=== PATIENT | female | born 1935 | race Asian ===

== ENCOUNTER 2023-04-13 09:02 | Inpatient (IN) | payer MEDICAID, MEDICARE ==
[2023-04-13] VITALS (9 sets, daily range): BP systolic 103–134; BP diastolic 56–67; PULSE 77–117; RESP 16–19; TEMP 97–97.9; O2SAT 94–99
[~2023-04-13] VITALS: Ht 160 cm; Wt 48.5 kg
[2023-04-13] MEDS ORDERED: NACL 0.9% 1,500 ML IV SCH (09:40)
[2023-04-13 10:29] LABS: BLOOD GAS PCO2 24.8 mmHg (35-45); BLOOD GAS PH 7.522 (7.35-7.45)
[2023-04-13 10:30] LABS: BLOOD GAS BASE EXCESS -1.3 mmol/L (-2.0-2.0); BLOOD GAS HCO3 19.9 mmol/L (22-26); BLOOD GAS PO2 45.4 mmHg (75-100)
[2023-04-13 10:31] LABS: FRACTIONATED INSPIRED OXYGEN 0.21 % (0.21-100.00)
[2023-04-13 10:58] LABS: BASOPHILS % (AUTO) 0.1 % (0.0-2.0); HEMATOCRIT 38.6 % (36-48); HEMOGLOBIN 13.8 g/dL (12.0-16.0); LYMPHOCYTES # (AUTO) 0.4 K/uL (2.5-16.5); LYMPHOCYTES % (AUTO) 3.2 % (20.5-51.1); MEAN CORPUSCULAR HEMOGLOBIN 29 pg (27-31); MEAN CORPUSCULAR HGB CONC 36 g/dL (33-37); MEAN CORPUSCULAR VOLUME 81.9 fL (80-94); MONOCYTES # (AUTO) 0.2 K/uL (0.8-1.0); MONOCYTES % (AUTO) 1.7 % (1.7-9.3); NEUTROPHILS # (AUTO) 11.8 K/uL (1.8-7.7); PLATELET COUNT (AUTO) 262 K/uL (140-450); RED BLOOD CELL COUNT(AUTO) 4.72 MIL/uL (4.20-5.40); WHITE BLOOD COUNT (AUTO) 12.4 K/uL (4.8-10.8)
[2023-04-13 11:17] LABS: PROTHROMBIN TIME 10.5 secs (10.8-13.4)
[2023-04-13] MEDS ORDERED: ASPI-1205 PO (11:30)
[2023-04-13] MEDS ORDERED: CALC500T60 PO (11:30)
[2023-04-13] MEDS ORDERED: SYN.075 PO (11:30)
[2023-04-13] MEDS ORDERED: ASCO500T95 PO (11:30)
[2023-04-13] MEDS ORDERED: PRAV20TA5 PO (11:30)
[2023-04-13] MEDS ORDERED: MULT-2253 PO (11:30)
[2023-04-13] MEDS ORDERED: GABA100C PO (11:30)
[2023-04-13] MEDS ORDERED: AMLO5TAB PO (11:30)
[2023-04-13 11:33] LABS: RSV Negative (NEGATIVE)
[2023-04-13 11:39] LABS: FLU A ANTIGEN negative (NEGATIVE); FLU B ANTIGEN negative (NEGATIVE)
[2023-04-13] MEDS ORDERED: cefTRIAXone 1,000 MG VIAL ONE (11:55)
[2023-04-13 11:58] LABS: ALBUMIN 2.9 g/dL (3.4-5.0); ANION GAP 14.7 (8-16); CALCIUM 7.2 mg/dL (8.5-10.1); CREATININE 0.6 mg/dL (0.6-1.3)
[2023-04-13 12:00] LABS: CREATINE KINASE, TOTAL 1925 U/L (26-192)
[2023-04-13 12:04] LABS: POTASSIUM 2.7 mmol/L (3.5-5.1)
[2023-04-13] MEDS ORDERED: KCL 20 MEQ IN 100 mL PREMIX 200 ML IV ONE (12:10)
[2023-04-13 12:25] LABS: LACTIC ACID 1.3 mmol/L (0.4-2.0)
[2023-04-13] MEDS ORDERED: KCL 20 MEQ IN 100 mL PREMIX 200 ML IV PRN (13:10)
[2023-04-13] MEDS ORDERED: MORPHINE SULFATE 2 MG/ML SYR IVP PRN (13:10)
[2023-04-13] MEDS ORDERED: ONDANSETRON 4 MG/2 ML VIAL IVP PRN (13:10)
[2023-04-13] MEDS ORDERED: HYDROcodone/APAP 5/325 MG 1 TAB TAB PO PRN (13:10)
[2023-04-13] MEDS ORDERED: POTASSIUM CHLORIDE 10 MEQ TABER PO PRN (13:10)
[2023-04-13] MEDS ORDERED: ACETAMINOPHEN 325 MG TAB PO PRN (13:10)
[2023-04-13 13:42] LABS: TOTAL PROTEIN, SERUM 7.4 g/dL (6.4-8.2)
[2023-04-13 15:19] LABS: ANION GAP 13.5 (8-16); CALCIUM 6.4 mg/dL (8.5-10.1); CARBON DIOXIDE 20.7 mmol/L (21-32); CHLORIDE 77 mmol/L (98-107); CREATININE 0.4 mg/dL (0.6-1.3); GLUCOSE 104 mg/dL (74-106); POTASSIUM 3.2 mmol/L (3.5-5.1); UREA NITROGEN, BLOOD 8 mg/dL (7-18)
[2023-04-13 15:35] LABS: SODIUM SERUM 108 mmol/L (136-145)
[2023-04-13] MEDS: AZITHROMYCIN 500 MG in DEXTROSE 5% 250 ML IV SCH (17:00)
[2023-04-13] MEDS ORDERED: AZITHROMYCIN 500 MG INJ VIAL IV ONE ×2 (17:47→17:49)
[2023-04-13] MEDS ORDERED: traZODone 50 MG TAB PO PRN (23:20)
[2023-04-13] MEDS ORDERED: guaiFENesin 20 MG/ML UDC PO PRN (23:20)
[2023-04-14] VITALS (11 sets, daily range): BP systolic 110–134; BP diastolic 58–71; PULSE 77–110; RESP 16–24; TEMP 97–98.5; O2SAT 96–99
[2023-04-14 07:12] LABS: ANION GAP 13.5 (8-16); CARBON DIOXIDE 21.6 mmol/L (21-32); CHLORIDE 76 mmol/L (98-107); CREATININE 0.6 mg/dL (0.6-1.3); GLUCOSE 179 mg/dL (74-106); POTASSIUM 3.1 mmol/L (3.5-5.1); UREA NITROGEN, BLOOD 9 mg/dL (7-18)
[2023-04-14 07:29] LABS: CALCIUM 6.3 mg/dL (8.5-10.1)
[2023-04-14 07:38] LABS: BASOPHILS % (AUTO) 0.1 % (0.0-2.0); HEMATOCRIT 35.3 % (36-48); HEMOGLOBIN 12.3 g/dL (12.0-16.0); LYMPHOCYTES # (AUTO) 0.3 K/uL (2.5-16.5); LYMPHOCYTES % (AUTO) 2.6 % (20.5-51.1); MEAN CORPUSCULAR HEMOGLOBIN 29 pg (27-31); MEAN CORPUSCULAR HGB CONC 35 g/dL (33-37); MEAN CORPUSCULAR VOLUME 82.7 fL (80-94); MONOCYTES # (AUTO) 0.4 K/uL (0.8-1.0); NEUTROPHILS # (AUTO) 11.8 K/uL (1.8-7.7); NEUTROPHILS % (AUTO) 94.3 % (42.2-75.2); PLATELET COUNT (AUTO) 257 K/uL (140-450); RED BLOOD CELL COUNT(AUTO) 4.27 MIL/uL (4.20-5.40); RED CELL DISTRIBUTION WIDTH 13.1 % (11.6-13.7); SODIUM SERUM 108 mmol/L (136-145); WHITE BLOOD COUNT (AUTO) 12.5 K/uL (4.8-10.8)
[2023-04-14] MEDS: NACL 0.9% 1,000 ML IV SCH (07:57)
[2023-04-14] MEDS ORDERED: HYDRAGUARD CREAM TP SCH (08:35)
[2023-04-14] MEDS ORDERED: Z-GUARD PASTE TP SCH (09:15)
[2023-04-14] MEDS: SODIUM CHLORIDE 1 GM TAB PO SCH ×2 (12:10→16:07)
[2023-04-14 14:49] LABS: APPEARANCE,URINE CLEAR (CLEAR); BILIRUBIN,URINE NEGATIVE (NEGATIVE); BLOOD, URINE TRACE-I (NEGATIVE); COLOR,URINE YELLOW (YELLOW); LEUKOCYTE ESTERASE ,URINE 2+ (NEGATIVE); NITRITE, URINE NEGATIVE (NEGATIVE); PH,URINE 6.5 (5.0-9.0); PROTEIN,URINE TRACE (NEGATIVE); UGLUCOSE NEGATIVE (NEGATIVE); UROBILINOGEN,URINE 0.2 EU/dL (0.2 - 1)
[2023-04-14 15:13] LABS: WBC,URINE 80-100 /HPF (0-5)
[2023-04-14 15:14] LABS: BACTERIA,URINE 1+ /HPF (None Seen); MUCUS,URINE 1+ /LPF (None Seen); SQUAMOUS EPITHELIAL CELL,UR 4-10 (MOD) /LPF (0-3 (FEW)); TRICHOMONAS,URINE None Seen /HPF (None Seen); YEAST,URINE None Seen /HPF (None Seen)
[2023-04-14] MEDS: AZITHROMYCIN 500 MG in DEXTROSE 5% 250 ML IV SCH (16:07)
[2023-04-14] MEDS: MAG SULF 2000 MG/WATER PREMIX 100 ML IV SCH ×2 (16:44→18:42)
[2023-04-15] VITALS (9 sets, daily range): BP systolic 109–135; BP diastolic 51–66; PULSE 73–107; RESP 16–18; TEMP 96.8–98.8; O2SAT 94–100
[2023-04-15] MEDS: NACL 0.9% 1,000 ML IV SCH ×2 (03:10→05:55)
[2023-04-15 06:43] LABS: ANION GAP 16.6 (8-16); CALCIUM 6.2 mg/dL (8.5-10.1); CARBON DIOXIDE 23.3 mmol/L (21-32); CHLORIDE 75 mmol/L (98-107); CREATININE 0.4 mg/dL (0.6-1.3); GLUCOSE 95 mg/dL (74-106); UREA NITROGEN, BLOOD 4 mg/dL (7-18)
[2023-04-15 06:45] LABS: POTASSIUM 2.9 mmol/L (3.5-5.1); SODIUM SERUM 112 mmol/L (136-145)
[2023-04-15 07:19] LABS: BASOPHILS % (AUTO) 0.1 % (0.0-2.0); HEMOGLOBIN 14.1 g/dL (12.0-16.0); LYMPHOCYTES # (AUTO) 0.4 K/uL (2.5-16.5); MEAN CORPUSCULAR HEMOGLOBIN 29 pg (27-31); MEAN CORPUSCULAR HGB CONC 35 g/dL (33-37); MEAN CORPUSCULAR VOLUME 82.7 fL (80-94); MONOCYTES # (AUTO) 0.3 K/uL (0.8-1.0); MONOCYTES % (AUTO) 3.8 % (1.7-9.3); NEUTROPHILS # (AUTO) 8.1 K/uL (1.8-7.7); NEUTROPHILS % (AUTO) 91.1 % (42.2-75.2); PLATELET COUNT (AUTO) 291 K/uL (140-450); RED BLOOD CELL COUNT(AUTO) 4.84 MIL/uL (4.20-5.40); RED CELL DISTRIBUTION WIDTH 13.2 % (11.6-13.7); WHITE BLOOD COUNT (AUTO) 8.9 K/uL (4.8-10.8)
[2023-04-15] MEDS: SODIUM CHLORIDE 1 GM TAB PO SCH ×3 (08:08→15:58)
[2023-04-15] MEDS ORDERED: COMMUNICATION ORDER MC SCH (12:25)
[2023-04-15] MEDS ORDERED: TOLVAPTAN 15 MG TABLET PO SCH (13:00)
[2023-04-15 15:51] LABS: ANION GAP 12.4 (8-16); CHLORIDE 81 mmol/L (98-107); CREATININE 0.7 mg/dL (0.6-1.3); GLUCOSE 151 mg/dL (74-106); POTASSIUM 3.4 mmol/L (3.5-5.1); UREA NITROGEN, BLOOD 6 mg/dL (7-18)
[2023-04-15 15:58] LABS: SODIUM SERUM 115 mmol/L (136-145)
[2023-04-15 15:59] LABS: CALCIUM 5.9 mg/dL (8.5-10.1)
[2023-04-15] MEDS: AZITHROMYCIN 500 MG in DEXTROSE 5% 250 ML IV SCH (15:59)
[2023-04-15] MEDS ORDERED: KCL 20 MEQ IN 100 mL PREMIX 100 ML IV ONE (21:30)
[2023-04-15] MEDS ORDERED: FUROSEMIDE 20 MG TAB PO SCH (21:40)
[2023-04-16] VITALS (7 sets, daily range): BP systolic 113–144; BP diastolic 53–70; PULSE 79–103; RESP 16–20; TEMP 97.3–98.5; O2SAT 93–100
[2023-04-16 07:21] LABS: BASOPHILS % (AUTO) 0.1 % (0.0-2.0); EOSINOPHILS % (AUTO) 0.1 % (0.0-4.0); HEMATOCRIT 34.2 % (36-48); HEMOGLOBIN 11.9 g/dL (12.0-16.0); LYMPHOCYTES # (AUTO) 0.5 K/uL (2.5-16.5); LYMPHOCYTES % (AUTO) 5.7 % (20.5-51.1); MEAN CORPUSCULAR HEMOGLOBIN 29 pg (27-31); MEAN CORPUSCULAR HGB CONC 35 g/dL (33-37); MEAN CORPUSCULAR VOLUME 83.7 fL (80-94); MONOCYTES # (AUTO) 0.6 K/uL (0.8-1.0); MONOCYTES % (AUTO) 7.5 % (1.7-9.3); NEUTROPHILS # (AUTO) 7.1 K/uL (1.8-7.7); NEUTROPHILS % (AUTO) 86.6 % (42.2-75.2); PLATELET COUNT (AUTO) 297 K/uL (140-450); RED BLOOD CELL COUNT(AUTO) 4.08 MIL/uL (4.20-5.40); RED CELL DISTRIBUTION WIDTH 13.7 % (11.6-13.7); WHITE BLOOD COUNT (AUTO) 8.2 K/uL (4.8-10.8)
[2023-04-16 07:38] LABS: CALCIUM 6.5 mg/dL (8.5-10.1); CARBON DIOXIDE 26.3 mmol/L (21-32); CHLORIDE 96 mmol/L (98-107); CREATININE 0.6 mg/dL (0.6-1.3); GLUCOSE 102 mg/dL (74-106); POTASSIUM 3.3 mmol/L (3.5-5.1); SODIUM SERUM 130 mmol/L (136-145); UREA NITROGEN, BLOOD 6 mg/dL (7-18)
[2023-04-16] MEDS: SODIUM CHLORIDE 1 GM TAB PO SCH (08:55)
[2023-04-16] MEDS ORDERED: POTASSIUM CHLORIDE 10 MEQ TABER PO SCH (11:33)
[2023-04-16] MEDS ORDERED: POTASSIUM CHLORIDE 20% 40 MEQ/15 ML UDC GT SCH (11:45)
[2023-04-16] MEDS: DEXTROSE 5% 1,000 ML IV SCH ×2 (11:58→20:21)
[2023-04-16 12:17] LABS: CALCIUM 6.7 mg/dL (8.5-10.1); CARBON DIOXIDE 25.1 mmol/L (21-32); CHLORIDE 95 mmol/L (98-107); CREATININE 0.7 mg/dL (0.6-1.3); GLUCOSE 163 mg/dL (74-106); POTASSIUM 3.1 mmol/L (3.5-5.1); SODIUM SERUM 130 mmol/L (136-145); UREA NITROGEN, BLOOD 7 mg/dL (7-18)
[2023-04-16 16:15] LABS: ANION GAP 10.6 (8-16); CALCIUM 6.9 mg/dL (8.5-10.1); CARBON DIOXIDE 26.2 mmol/L (21-32); CHLORIDE 98 mmol/L (98-107); CREATININE 0.7 mg/dL (0.6-1.3); GLUCOSE 119 mg/dL (74-106); POTASSIUM 3.8 mmol/L (3.5-5.1); SODIUM SERUM 131 mmol/L (136-145); UREA NITROGEN, BLOOD 9 mg/dL (7-18)
[2023-04-16] MEDS: AZITHROMYCIN 500 MG in DEXTROSE 5% 250 ML IV SCH (17:08)
[2023-04-16 20:53] LABS: ANION GAP 10.2 (8-16); CALCIUM 6.9 mg/dL (8.5-10.1); CARBON DIOXIDE 28.1 mmol/L (21-32); CHLORIDE 93 mmol/L (98-107); CREATININE 0.6 mg/dL (0.6-1.3); GLUCOSE 150 mg/dL (74-106); POTASSIUM 4.3 mmol/L (3.5-5.1); SODIUM SERUM 127 mmol/L (136-145); UREA NITROGEN, BLOOD 9 mg/dL (7-18)
[2023-04-17] VITALS (7 sets, daily range): BP systolic 127–148; BP diastolic 64–87; PULSE 69–107; RESP 18–20; TEMP 97–97.8; O2SAT 95–99
[2023-04-17 00:51] LABS: ANION GAP 12.2 (8-16); CALCIUM 6.8 mg/dL (8.5-10.1); CARBON DIOXIDE 25.8 mmol/L (21-32); CHLORIDE 92 mmol/L (98-107); CREATININE 0.6 mg/dL (0.6-1.3); GLUCOSE 113 mg/dL (74-106); SODIUM SERUM 126 mmol/L (136-145); UREA NITROGEN, BLOOD 7 mg/dL (7-18)
[2023-04-17 05:43] LABS: ANION GAP 14.8 (8-16); CARBON DIOXIDE 25.1 mmol/L (21-32); CHLORIDE 91 mmol/L (98-107); CREATININE 0.6 mg/dL (0.6-1.3); GLUCOSE 100 mg/dL (74-106); POTASSIUM 3.9 mmol/L (3.5-5.1); SODIUM SERUM 127 mmol/L (136-145); UREA NITROGEN, BLOOD 6 mg/dL (7-18)
[2023-04-17 06:11] LABS: CALCIUM 6.7 mg/dL (8.5-10.1)
[2023-04-17 06:59] LABS: ANION GAP 11.9 (8-16); CALCIUM 6.5 mg/dL (8.5-10.1); CHLORIDE 92 mmol/L (98-107); CREATININE 0.6 mg/dL (0.6-1.3); GLUCOSE 100 mg/dL (74-106); POTASSIUM 3.9 mmol/L (3.5-5.1); SODIUM SERUM 127 mmol/L (136-145); UREA NITROGEN, BLOOD 7 mg/dL (7-18)
[2023-04-17 07:26] LABS: BASOPHILS % (AUTO) 0.4 % (0.0-2.0); EOSINOPHILS # (AUTO) 0.1 K/uL (0-0.4); EOSINOPHILS % (AUTO) 1.5 % (0.0-4.0); HEMATOCRIT 33.4 % (36-48); HEMOGLOBIN 11.4 g/dL (12.0-16.0); LYMPHOCYTES # (AUTO) 0.6 K/uL (2.5-16.5); LYMPHOCYTES % (AUTO) 9.3 % (20.5-51.1); MEAN CORPUSCULAR HEMOGLOBIN 29 pg (27-31); MEAN CORPUSCULAR HGB CONC 34 g/dL (33-37); MEAN CORPUSCULAR VOLUME 84.7 fL (80-94); MONOCYTES # (AUTO) 0.6 K/uL (0.8-1.0); MONOCYTES % (AUTO) 8.5 % (1.7-9.3); NEUTROPHILS # (AUTO) 5.6 K/uL (1.8-7.7); NEUTROPHILS % (AUTO) 80.3 % (42.2-75.2); PLATELET COUNT (AUTO) 329 K/uL (140-450); RED BLOOD CELL COUNT(AUTO) 3.94 MIL/uL (4.20-5.40); RED CELL DISTRIBUTION WIDTH 13.4 % (11.6-13.7)
[2023-04-17 08:21] LABS: ANION GAP 11.9 (8-16); CALCIUM 6.6 mg/dL (8.5-10.1); CHLORIDE 93 mmol/L (98-107); CREATININE 0.6 mg/dL (0.6-1.3); GLUCOSE 101 mg/dL (74-106); POTASSIUM 3.9 mmol/L (3.5-5.1); SODIUM SERUM 128 mmol/L (136-145); UREA NITROGEN, BLOOD 6 mg/dL (7-18)
[2023-04-17] MEDS: NACL 0.9% 1,000 ML IV SCH (12:22)
[2023-04-17 12:53] LABS: ANION GAP 11.1 (8-16); CALCIUM 6.8 mg/dL (8.5-10.1); CARBON DIOXIDE 27.6 mmol/L (21-32); CHLORIDE 92 mmol/L (98-107); CREATININE 0.6 mg/dL (0.6-1.3); GLUCOSE 140 mg/dL (74-106); POTASSIUM 3.7 mmol/L (3.5-5.1); SODIUM SERUM 127 mmol/L (136-145); UREA NITROGEN, BLOOD 7 mg/dL (7-18)
[2023-04-17 16:47] LABS: ANION GAP 11.5 (8-16); CALCIUM 6.8 mg/dL (8.5-10.1); CARBON DIOXIDE 27.5 mmol/L (21-32); CHLORIDE 92 mmol/L (98-107); CREATININE 0.6 mg/dL (0.6-1.3); GLUCOSE 88 mg/dL (74-106); SODIUM SERUM 127 mmol/L (136-145); UREA NITROGEN, BLOOD 7 mg/dL (7-18)
[2023-04-17] MEDS: AZITHROMYCIN 500 MG in DEXTROSE 5% 250 ML IV SCH (17:37)
[2023-04-17] MEDS ORDERED: FLUT1POW3 IH (19:44)
[2023-04-17 20:46] LABS: ANION GAP 11.7 (8-16); CALCIUM 6.5 mg/dL (8.5-10.1); CARBON DIOXIDE 26.3 mmol/L (21-32); CHLORIDE 93 mmol/L (98-107); CREATININE 0.6 mg/dL (0.6-1.3); GLUCOSE 119 mg/dL (74-106); SODIUM SERUM 127 mmol/L (136-145); UREA NITROGEN, BLOOD 11 mg/dL (7-18)
[2023-04-18] VITALS: BP 139/71; PULSE 91; PULSE 93; RESP 18; TEMP 97.2; O2SAT 93
[2023-04-18] MEDS ORDERED: Z-GUARD PASTE TP PRN (01:15)
[2023-04-18 04:00] VITALS: BP 138/72; PULSE 85; PULSE 93; RESP 18; TEMP 97; O2SAT 94
[2023-04-18] MEDS: NACL 0.9% 1,000 ML IV SCH ×2 (05:47→17:57)
[2023-04-18] MEDS ORDERED: LEVOTHYROXINE 0.075 MG TAB PO SCH (06:30)
[2023-04-18 07:30] LABS: ANION GAP 11.1 (8-16); CALCIUM 6.6 mg/dL (8.5-10.1); CARBON DIOXIDE 26.8 mmol/L (21-32); CHLORIDE 95 mmol/L (98-107); CREATININE 0.6 mg/dL (0.6-1.3); GLUCOSE 89 mg/dL (74-106); POTASSIUM 3.9 mmol/L (3.5-5.1); SODIUM SERUM 129 mmol/L (136-145); UREA NITROGEN, BLOOD 9 mg/dL (7-18)
[2023-04-18 07:51] LABS: BASOPHILS % (AUTO) 0.7 % (0.0-2.0); EOSINOPHILS # (AUTO) 0.2 K/uL (0-0.4); HEMATOCRIT 33.6 % (36-48); HEMOGLOBIN 11.5 g/dL (12.0-16.0); LYMPHOCYTES # (AUTO) 0.7 K/uL (2.5-16.5); LYMPHOCYTES % (AUTO) 14.3 % (20.5-51.1); MEAN CORPUSCULAR HEMOGLOBIN 29 pg (27-31); MEAN CORPUSCULAR HGB CONC 34 g/dL (33-37); MEAN CORPUSCULAR VOLUME 85.9 fL (80-94); MONOCYTES # (AUTO) 0.5 K/uL (0.8-1.0); MONOCYTES % (AUTO) 10.7 % (1.7-9.3); NEUTROPHILS # (AUTO) 3.2 K/uL (1.8-7.7); NEUTROPHILS % (AUTO) 69.3 % (42.2-75.2); PLATELET COUNT (AUTO) 344 K/uL (140-450); RED BLOOD CELL COUNT(AUTO) 3.91 MIL/uL (4.20-5.40); RED CELL DISTRIBUTION WIDTH 13.4 % (11.6-13.7); WHITE BLOOD COUNT (AUTO) 4.6 K/uL (4.8-10.8)
[2023-04-18 08:00] VITALS: BP 126/63; PULSE 69; PULSE 79; RESP 18; TEMP 97; O2SAT 96
[2023-04-18 12:00] VITALS: BP 113/58; PULSE 85; PULSE 89; RESP 18; TEMP 96.7; O2SAT 98
[2023-04-18] MEDS ORDERED: Z-GUARD PASTE TP SCH (13:00)
[2023-04-18 14:34] VITALS: O2SAT 97
[2023-04-18] MEDS ORDERED: MAG SULF 2000 MG/WATER PREMIX 50 ML IV SCH (15:09)
[2023-04-18 16:00] VITALS: BP 148/67; PULSE 85; RESP 18; TEMP 96.8; O2SAT 99
[2023-04-18] MEDS ORDERED: MUC600 PO (16:30)
[2023-04-18] MEDS ORDERED: CEPH-588 PO (16:30)
[2023-04-18] MEDS: AZITHROMYCIN 500 MG in DEXTROSE 5% 250 ML IV SCH (17:57)
== END 2023-04-18 20:20 | DRG 351 ==
LOC: EDBD 09:02 → MED 09:02 → MTU 13:12
PROVIDERS: ADMIT Student in an Organized Health Care Education/Training Program; ATTEND Student in an Organized Health Care Education/Training Program
DX: M62.82 Rhabdomyolysis (principal); R65.10 Systemic inflammatory response syndrome (SIRS) of non-infectious origin without acute organ dysfunction; E44.0 Moderate protein-calorie malnutrition; E87.1 Hypo-osmolality and hyponatremia; J12.9 Viral pneumonia, unspecified; E86.0 Dehydration; E86.1 Hypovolemia; E78.5 Hyperlipidemia, unspecified; Z20.822 Contact with and (suspected) exposure to COVID-19; D72.829 Elevated white blood cell count, unspecified; I10 Essential (primary) hypertension; Z79.82 Long term (current) use of aspirin; Z79.899 Other long term (current) drug therapy; Z68.1 Body mass index [BMI] 19.9 or less, adult
CPT/HCPCS: 36415; 36600; 71045; 80048; 80053; 81001; 82550; 82553; 82803; 83605; 83735; 83874; 83880; 84300; 84484; 85025; 85610; 85730; 87040; 87081; 87086; 87420; 93005; 96361; 96365; 97163-GP; 97530; 99291; J0456; J0696; J1644; J3475; J3480; J7060